=== PATIENT | female | born 1965 | race Caucasian/White ===

== ENCOUNTER → 2022-07-01 | Outpatient (CLI) | payer OTHER ==
[2022-07-01 19:15] LABS: BASOPHILS ABSOLUTE AUTO 0.02 K/mm3 (0.00-0.23); BASOPHILS PERCENT AUTO 1 % (0-2); EOSINOPHILS ABSOLUTE AUTO 0.15 K/mm3 (0.00-0.68); EOSINOPHILS PERCENT AUTO 3 % (0-6); Hematocrit 41.4 % (33.0-51.0); Hemoglobin 13.8 g/dL (11.5-16.0); IMMATURE GRAN ABSOLUTE AUTO 0.01 K/mm3 (0.00-0.10); IMMATURE GRAN PERCENT AUTO 0 % (0-1); LYMPHOCYTES ABSOLUTE AUTO 1.16 K/mm3 (0.84-5.20); LYMPHOCYTES PERCENT AUTO 27 % (21-46); MONOCYTES ABSOLUTE AUTO 0.34 K/mm3 (0.16-1.47); MONOCYTES PERCENT AUTO 8 % (4-13); Mean Corpuscular HGB 30.4 pg (26.0-34.0); Mean Corpuscular HGB Conc 33.3 g/dL (31.5-36.5); Mean Corpuscular Volume 91 fL (80-100); Mean Platelet Volume 11.3 fL (9.1-12.4); NEUTROPHILS ABSOLUTE AUTO 2.68 K/mm3 (1.96-9.15); NEUTROPHILS PERCENT AUTO 62 % (41-73); Platelet Count 244 K/mm3 (150-400); RDW Coefficient Variation 12.3 % (11.7-14.2); Red Blood Cell Count 4.54 M/mm3 (3.80-5.20); White Blood Cell Count 4.36 K/mm3 (4.00-11.30)
[2022-07-01 19:47] LABS: Alanine Aminotransfer (ALT/SGP 19 U/L (12-78); Albumin/Globulin Ratio 1.4 (0.8-1.8); Alk Phos 110 U/L (50-136); Anion Gap 3 mmol/L (6-16); Aspartate Aminotrans (AST/SGOT 12 U/L (12-37); Bilirubin, Total 0.5 mg/dL (0.1-1.0); Blood Urea Nitrogen 18 mg/dL (8-24); Bun/Creatinine Ratio 23.8 (12.0-20.0); CHOL/HDL RATIO 1.7; CO2, Blood 30 mmol/L (21-32); Calcium, Blood 9.5 mg/dL (8.5-10.1); Chloride, Blood 109 mmol/L (98-108); Cholesterol 138 mg/dL (50-200); Creatinine, Blood 0.76 mg/dL (0.40-1.00); Globulin, Blood 2.9 g/dL (2.2-4.0); Glomerular Filtration Rate 92 (60-); Glucose, Blood 86 mg/dL (70-99); HDL Cholesterol 81 mg/dL (>39); LDL/HDL RATIO 0.6; Low Density Lipoprotein Chol 46 mg/dL (0-110); Potassium, Blood 3.9 mmol/L (3.5-5.5); Sodium, Blood 142 mmol/L (136-145); Total Protein, Blood 6.9 g/dL (6.4-8.2); Triglycerides 53 mg/dL (30-160); Very Low Density Lipoprot Chol 10 mg/dL (6-32)
[2022-07-01 19:53] LABS: Thyroid Stimulating Hormone 0.897 uIU/mL (0.360-4.800)
== END | disposition home or self-care (01) ==
LOC: LAB 18:24 → LAB SHORT 18:24
PROVIDERS: Family Medicine
DX: E03.9 Hypothyroidism, unspecified (principal); E78.5 Hyperlipidemia, unspecified; Z79.899 Other long term (current) drug therapy
CPT/HCPCS: 80053; 80061; 84443; 85025

== ENCOUNTER 2023-07-15 08:53 | Day surgery (SDC) | payer OTHER ==
[~2023-07-15] VITALS: Ht 172.7 cm; Wt 93.3 kg
[2023-07-15] VITALS (13 sets, daily range): BP systolic 104–145; BP diastolic 64–84
[~2023-07-15 08:53] MED LIST: ALBU90OI INH; CITALOPRAM HBR10 MG PO; FLUT1DIS5 INH; GABA300 PO; LAMO100 PO; LEVSOD137 PO; MONT10T PO; REXULTI0.25 MG; ROSU10TA PO
--- NOTE | 2023-07-15 11:15 | NUR ---
PRE-OP NOTE PT A&OX4, BREATHING RA, AT BEDSIDE. PARTIAL DENTURE PLACED IN PT BELONGINGS. Ambulatory in Day Surgery Patient confirms NPO status and agrees with scheduled surgery. Pre-Op teaching done. Pt verbalizes understanding. PT REPORTED ITCHY SCALP AFTER VANCO BEING STARTED, VANCO WAS REDUCED TO HALF RATE ABOUT SHELTER THROUGH ADMINISTRATION PER DR CONTRERAS, ITCHINESS DID NOT CHANGE.
--- NOTE | 2023-07-15 16:19 | NUR ---
SHIFT SUMMARY PT A&OX4, VSS/RA, FAYE PO, VOIDING, AMB FWW/GB, PAIN MANAGED PER EMAR, PHYSICAL THERAPY EVAL'D, IV LFA. S/P R TKA, BULKY DRESSING/ELENA WRAP, ELEVATED AND TEDS/SCDS/POLAR LINDSEY ON AT REST. WILL REPORT TO ONCOMING NOC DEE.
--- NOTE | 2023-07-15 22:03 | NUR ---
MARILU MICHEL SCHEDULED TO GIVE AT 2200. PRE OP MARILU DOCUMENTED INCORRECTLY UNDER 2200 DOSING AND ALSO DOCUMENTED UNDER PRE OP ORDER. DISCUSSED WITH PHARMACIST PARAM, HE IS AWARE OF WHAT WAS SCANNED IN THE EMAR. HE STATES OK TO GIVE 2200 DOSE SCHEDULED.
[2023-07-16 00:19] VITALS: BP 134/76
[2023-07-16 04:41] VITALS: BP 144/84
[2023-07-16 05:01] LABS: BASOPHILS ABSOLUTE AUTO 0.02 K/mm3 (0.00-0.23); BASOPHILS PERCENT AUTO 0 % (0-2); EOSINOPHILS ABSOLUTE AUTO 0.01 K/mm3 (0.00-0.68); EOSINOPHILS PERCENT AUTO 0 % (0-6); Hematocrit 33.5 % (33.0-51.0); Hemoglobin 11.3 g/dL (11.5-16.0); IMMATURE GRAN ABSOLUTE AUTO 0.03 K/mm3 (0.00-0.10); IMMATURE GRAN PERCENT AUTO 0 % (0-1); LYMPHOCYTES ABSOLUTE AUTO 1.37 K/mm3 (0.84-5.20); LYMPHOCYTES PERCENT AUTO 14 % (21-46); MONOCYTES ABSOLUTE AUTO 0.81 K/mm3 (0.16-1.47); MONOCYTES PERCENT AUTO 9 % (4-13); Mean Corpuscular HGB 30.1 pg (26.0-34.0); Mean Corpuscular HGB Conc 33.7 g/dL (31.5-36.5); Mean Corpuscular Volume 89 fL (80-100); NEUTROPHILS ABSOLUTE AUTO 7.34 K/mm3 (1.96-9.15); NEUTROPHILS PERCENT AUTO 77 % (41-73); Platelet Count 246 K/mm3 (150-400); RDW Coefficient Variation 11.6 % (11.7-14.2); RDW Standard Deviation 37.2 fL (35.1-46.3); Red Blood Cell Count 3.75 M/mm3 (3.80-5.20); White Blood Cell Count 9.58 K/mm3 (4.00-11.30)
[2023-07-16 05:48] LABS: Bun/Creatinine Ratio 24.6 (12.0-20.0); Calcium, Blood 8.6 mg/dL (8.5-10.1); Creatinine, Blood 0.65 mg/dL (0.40-1.00); Magnesium, Blood 2.1 mg/dL (1.6-2.4); Potassium, Blood 3.8 mmol/L (3.5-5.5)
--- NOTE | 2023-07-16 06:29 | NUR ---
SHIFT SUMMARY NOC. PT POD 1 FOR RIGHT TOTAL KNEE. DRESSING IS C/D/I. PT VOIDING AND AMBULATES TO THE BR. PT MEDICATED FOR PAIN WITH RELIEF OF SX. PT RESTED WITH CALL LIGHT IN REACH.
[2023-07-16 07:31] VITALS: BP 127/65
--- NOTE | 2023-07-16 10:42 | NUR ---
SHIFT SUMMARY PT A&OX4, VSS/RA, FAYE PO, VOIDING, AMB FWW SBA/UP TO CHAIR/AMB TO BRP & HALLWAY, PAIN MANAGED, DRESSING/AQUACEL APPLIED BY SURGEON THIS AM, IV DC'D, TEDS ON. DC INS PROVIDED. PT AND SPOUSE REP UNDERSTANDING THOSE INSTRUCTIONS INCLUDING WEAR TEDS 6 WKS RLE/2WKS LLE, ASA BID, BACTRIM BID, OUTPT PT, SHORT FREQUENT AMB W/FWW, PAIN MEDICATION. LEFT FLOOR VIA WC WITH GRAIN SHOVELER TO GO HOME WITH WITH ALL PERSONAL POSSESSIONS INCLUDING DC PACKET, AQUACEL DRESSINGS, POLAR LINDSEY; REPORTS HAVING SCRIPTS FILLED AT HOME.
== END 2023-07-16 09:30 | disposition home or self-care (01) ==
LOC: ORSCMMR 08:53 → ORD 10:45 → SURS 14:09 → ORSCMMR 07-16 09:30
PROVIDERS: Orthopaedic Surgery
PROC: 0SRC0J9 Replacement of Right Knee Joint with Synthetic Substitute, Cemented, Open Approach (ICD-10-PCS; principal; 2023-07-15 10:45)
DX: M17.0 Bilateral primary osteoarthritis of knee (principal); M79.7 Fibromyalgia; J45.909 Unspecified asthma, uncomplicated; F41.8 Other specified anxiety disorders; F31.9 Bipolar disorder, unspecified; Z79.899 Other long term (current) drug therapy
CPT/HCPCS: 36415; 73560-RT; 80048; 83735; 85025; 94640; 94664; 94760; 97110; 97116; 97162; A9270; C1713; C1776; J0171; J0690; J0735; J1100; J1885; J2250; J2704; J2795; J3010; J3370; J7120

== ENCOUNTER → 2024-10-18 | Outpatient (CLI) | payer OTHER ==
[~2024-10-18] MED LIST changes: +AUVELITY ER 451 EACH PO; +Aspir 8181 MG PO; +OXYC5 PO; +PROM25 PO; +SULTRIDS PO
[2024-10-18 19:27] LABS: BASOPHILS ABSOLUTE AUTO 0.02 K/mm3 (0.00-0.23); BASOPHILS PERCENT AUTO 0 % (0-2); EOSINOPHILS ABSOLUTE AUTO 0.14 K/mm3 (0.00-0.68); EOSINOPHILS PERCENT AUTO 3 % (0-6); Hematocrit 37.6 % (33.0-51.0); Hemoglobin 12.6 g/dL (11.5-16.0); IMMATURE GRAN PERCENT AUTO 0 % (0-1); LYMPHOCYTES ABSOLUTE AUTO 1.77 K/mm3 (0.84-5.20); LYMPHOCYTES PERCENT AUTO 36 % (21-46); MONOCYTES ABSOLUTE AUTO 0.35 K/mm3 (0.16-1.47); MONOCYTES PERCENT AUTO 7 % (4-13); Mean Corpuscular HGB 29.1 pg (26.0-34.0); Mean Corpuscular HGB Conc 33.5 g/dL (31.5-36.5); Mean Corpuscular Volume 87 fL (80-100); Mean Platelet Volume 10.4 fL (9.1-12.4); NEUTROPHILS PERCENT AUTO 54 % (41-73); Platelet Count 325 K/mm3 (150-400); Red Blood Cell Count 4.33 M/mm3 (3.80-5.20); White Blood Cell Count 4.98 K/mm3 (4.00-11.30)
[2024-10-18 19:52] LABS: Percent Saturation 16.4 % (15.0-50.0)
[2024-10-18 19:56] LABS: Albumin, Blood 3.8 g/dL (3.4-5.0); Albumin/Globulin Ratio 1.2 (0.8-1.8); Bilirubin, Total 0.4 mg/dL (0.1-1.0); Bun/Creatinine Ratio 17.5 (12.0-20.0); Calcium, Blood 8.8 mg/dL (8.5-10.1); Creatinine, Blood 0.69 mg/dL (0.40-1.00); Globulin, Blood 3.3 g/dL (2.2-4.0); Potassium, Blood 3.7 mmol/L (3.5-5.5); Thyroid Stimulating Hormone 1.49 uIU/mL (0.360-4.800); Total Protein, Blood 7.1 g/dL (6.4-8.2)
== END | disposition home or self-care (01) ==
LOC: LAB SHORT 18:28 → LAB 18:28
PROVIDERS: Nurse Practitioner Family
DX: D50.9 Iron deficiency anemia, unspecified (principal); E03.9 Hypothyroidism, unspecified
CPT/HCPCS: 80053; 82728; 83540; 83550; 84443; 85025

== ENCOUNTER → 2025-05-16 | Outpatient (CLI) | payer OTHER ==
[2025-05-16 17:34] LABS: BASOPHILS ABSOLUTE AUTO 0.03 K/mm3 (0.00-0.23); BASOPHILS PERCENT AUTO 1 % (0-2); EOSINOPHILS ABSOLUTE AUTO 0.17 K/mm3 (0.00-0.68); EOSINOPHILS PERCENT AUTO 4 % (0-6); Hematocrit 41.3 % (33.0-51.0); Hemoglobin 13.5 g/dL (11.5-16.0); IMMATURE GRAN ABSOLUTE AUTO 0.01 K/mm3 (0.00-0.10); IMMATURE GRAN PERCENT AUTO 0 % (0-1); LYMPHOCYTES ABSOLUTE AUTO 2.20 K/mm3 (0.84-5.20); LYMPHOCYTES PERCENT AUTO 50 % (21-46); MONOCYTES ABSOLUTE AUTO 0.33 K/mm3 (0.16-1.47); MONOCYTES PERCENT AUTO 8 % (4-13); Mean Corpuscular HGB Conc 32.7 g/dL (31.5-36.5); Mean Corpuscular Volume 85 fL (80-100); NEUTROPHILS ABSOLUTE AUTO 1.68 K/mm3 (1.96-9.15); NEUTROPHILS PERCENT AUTO 38 % (41-73); NRBC ABSOLUTE 0.00 K/mm3 (0.00-0.02); NRBC Auto 0.0 /100 WBC (0.0-0.2); Platelet Count 311 K/mm3 (150-400); RDW Coefficient Variation 13.7 % (11.7-14.2); RDW Standard Deviation 42.5 fL (35.1-46.3)
[2025-05-16 19:47] LABS: Alanine Aminotransfer (ALT/SGP 16.0 U/L (12-78); Albumin, Blood 3.9 g/dL (3.4-5.0); Albumin/Globulin Ratio 1.3 (0.8-1.8); Anion Gap 10.0 mmol/L (3-11); Aspartate Aminotrans (AST/SGOT 16.0 U/L (12-37); Bilirubin, Total 0.3 mg/dL (0.1-1.0); Blood Urea Nitrogen 15.0 mg/dL (8-24); CO2, Blood 26.0 mmol/L (21-32); Calcium, Blood 8.6 mg/dL (8.5-10.1); Chloride, Blood 107.0 mmol/L (98-108); Creatinine, Blood 0.71 mg/dL (0.40-1.00); Globulin, Blood 3.1 g/dL (2.2-4.0); Glucose, Blood 80.0 mg/dL (70-99); Potassium, Blood 3.5 mmol/L (3.5-5.5); Sodium, Blood 139.0 mmol/L (136-145); Total Protein, Blood 7.0 g/dL (6.4-8.2)
== END ==
LOC: LAB SHORT 16:33 → LAB 16:33
PROVIDERS: Nurse Practitioner Family
DX: R60.9 Edema, unspecified (principal); Z79.899 Other long term (current) drug therapy
CPT/HCPCS: 80053; 83880; 84439; 84481; 85025

== ENCOUNTER → 2025-08-21 | Outpatient (CLI) | payer OTHER ==
[2025-08-21 20:33] LABS: Anion Gap 7.0 mmol/L (3-11); Blood Urea Nitrogen 19.0 mg/dL (8-24); CO2, Blood 25.0 mmol/L (21-32); Calcium, Blood 8.6 mg/dL (8.5-10.1); Chloride, Blood 111.0 mmol/L (98-108); Creatinine, Blood 0.74 mg/dL (0.40-1.00); Glucose, Blood 93.0 mg/dL (70-99); Potassium, Blood 3.9 mmol/L (3.5-5.5); Sodium, Blood 139.0 mmol/L (136-145)
== END | disposition home or self-care (01) ==
LOC: LAB SHORT 08:40 → LAB 08:40
PROVIDERS: Student in an Organized Health Care Education/Training Program
DX: I10 Essential (primary) hypertension (principal)
CPT/HCPCS: 80048